=== PATIENT | male | born 1950 | race American Indian/Alaskan Native ===

== ENCOUNTER 2018-03-29 12:18 | Day surgery (SDC) | payer MEDICARE ==
[~2018-03-29 12:18] MED LIST: NACL 0.9% 1000 ML 1,000 ML ONE
[2018-03-29] MEDS ORDERED: XYLOCAINE MPF 2% ONE (13:00)
[2018-03-29] MEDS ORDERED: DIPRIVAN 10 MG/ML IV ONE ×3 (13:22→14:11)
[2018-03-29] MEDS ORDERED: XYLOCAINE 2% INFILTRATI ONE (13:22)
--- NOTE | 2018-03-29 13:26 | Anesthesia Day of Surgery ---
Anesthesia Day of Surgery - Day of Surgery Patient Examined: Yes Patient H&P Reviewed: Yes Patient is NPO: Yes Beta Blockers: No Cardiac Clearance: No Pulmonary Clearance: No
--- NOTE | 2018-03-29 13:27 | Anesthesia Consultation ---
Anesthesia Consult and Med Hx Date of service: 03/29/18 - Airway Anesthetic Teeth Evaluation: Good ROM Head & Neck: Adequate Mental/Hyoid Distance: Adequate Mallampati Class: Class III Intubation Access Assessment: Probably Good - Pulmonary Exam CTA: Yes - Cardiac Exam Cardiac Exam: No Murmur - Pre-Operative Health Status ASA Pre-Surgery Classification: ASA3 Proposed Anesthetic Plan: MAC - Pulmonary Hx Smoking: No Hx Asthma: Yes Hx Respiratory Symptoms: No SOB: No COPD: No Home Oxygen Therapy: No Hx Pneumonia: No - Cardiovascular System Hx Hypertension: Yes Hx Coronary Artery Disease: No Hx Heart Attack/AMI: No Hx Angina: No Hx Percutaneous Transluminal Coronary Angioplasty (PTCA): No Hx Cardia Arrhythmia: No Hx Pacemaker: No Hx Internal Defibrillator: No Hx Valvular Heart Disease: No Hx Heart Murmur: No Hx Peripheral Vascular Disease: No - Central Nervous System Hx Neuromuscular Disorder: No CVA: No Hx Back Pain: No Hx Psychiatric Problems: No - Gastrointestinal Hx Ulcer: No Hx Gastroesophageal Reflux Disease: No - Endocrine Hx Renal Disease: No Hx End Stage Renal Disease: No Hx Cirrhosis: No Hx Liver Disease: No Hx Insulin Dependent Diabetes: No Hx Non-Insulin Dependent Diabetes: No Hx Thyroid Disease: No Hx Hypothyroidism: No Hx Hyperthyroidism: No - Hematic Hx Anemia: No Hx Sickle Cell Disease: No - Other Systems Hx Alcohol Use: No Hx Substance Use: No Hx Cancer: No Hx Obesity: No
[2018-03-29] MEDS ORDERED: NACL 0.9% 1000 ML 1,000 ML IV SCH (14:00)
[2018-03-29 14:57] VITALS: BP 147/88
--- NOTE | 2018-03-29 15:05 | Operative Report ---
Operative Report Operative Report: Date of procedure: 03/29/2018 Procedure: Colonoscopy with multiple snare polypectomies, submucosal injection, hot biopsy polypectomy, Hemoclip application.. Attending physician: Kameron Gordon MD Checker: Kameron Gordon MD Indication: Patient is a 67-year-old male who presents for screening colonoscopy. A colonoscopy service to evaluate patient for colorectal cancer screening. Consent: Informed consent was obtained after advising the patient and family regarding nature of this procedure, its indications, potential benefits as well as possible complications including but not limited to bleeding perforation and adverse reaction to medication, infection as well as other cardiopulmonary complications. An informed written and verbal consent was then obtained after due opportunity was provided for questions and answers. Monitoring: Patient was monitored continuously with pulse oximetry and electrocardiographic recordings as well as blood pressure recordings. Vital signs remained stable throughout this procedure with no untoward events. Preoperative assessment: Patient was assessed immediately prior to this procedure for capacity to tolerate monitored anesthesia care and moderate sedation as well as general anesthesia. Patient's ASA classification is 2, Mallampati class is 2, Hyomental distance is 3. Instrument: WealthTouch video colonoscope Medications: Propofol given intravenously in divided doses. For details please refer to anesthesia records. Description of procedure: Patient was placed in the left lateral decubitus position after achieving sedation, a digital rectal examination was performed following which the colonoscope was introduced into the anal verge and advanced to the cecum which was identified by the cecal valve, the appendiceal orifice, as well as by the cecal strap and direct transillumination. The colonoscope was subsequently withdrawn with careful inspection of all mucosal surfaces. Patient tolerated this procedure well and was subsequently taken to the recovery room. The following findings were noted. Findings: The cecum was normal. Ascending colon were normal. At the hepatic flexure, there were 2 broad-based sessile polyps one measured approximately 1 cm and another one measured approximately 8 mm. These were elevated with submucosal injection of saline and removed by snare electrocautery and retrieved. A Hemoclip was applied over the polypectomy site on the smaller polyp. The transverse colon was normal. In the descending colon, patient had a 5 mm sessile polyp which was removed by hot biopsy polypectomy and retrieved. The sigmoid colon was normal. The rectum was normal. Patient had extensive diverticulosis of the sigmoid and descending colon. On the retroflex view at the anal verge, patient had internal hemorrhoids. Impression: Multiple hepatic flexure polyps status post submucosal injection and snare polypectomy and hemoclip application. Descending colon polyp status post hot biopsy polypectomy. Diverticular disease of the colon. Internal hemorrhoids. Plan: Follow pathology report. High-fiber diet. Repeat colonoscopy in 5 years.
--- NOTE | 2018-03-29 15:07 | Discharge Summary ---
Short Stay Discharge Plan Activity: advance as tolerated Weight Bearing Status: Weight Bear as Tolerated Diet: regular Additional Instructions: Post Sedation D/C Instructions When you return home you may resume your regular diet unless otherwise directed. -Go directly home from the hospital and rest quietly. You may resume normal activities tomorrow. -Do NOT drive, return to work, operate any machinery or make any important personal or business decisions today . -Do NOT drink any alcohol or take nerve or sleeping drugs. They add to the effects of the medicine still present in your body. HIGH FOBER DIET. CALL FOR F/U APPT. Follow up with: MATHIEU LOPEZ MD [Primary Care Provider] - 7 Days
== END 2018-03-29 15:10 | disposition home or self-care (01) ==
LOC: GIO 12:18
PROVIDERS: ATTEND Internal Medicine Gastroenterology
DX: Z12.11 Encounter for screening for malignant neoplasm of colon (principal); D12.4 Benign neoplasm of descending colon; D12.3 Benign neoplasm of transverse colon; K57.30 Diverticulosis of large intestine without perforation or abscess without bleeding; K64.8 Other hemorrhoids; I10 Essential (primary) hypertension; J45.909 Unspecified asthma, uncomplicated; Z79.82 Long term (current) use of aspirin
CPT/HCPCS: 45381; 45384; 45385; 88305; J2704; J7030